=== PATIENT | male | born 1945 | race Caucasian/White ===

== ENCOUNTER 2020-08-21 11:11 | Emergency (ER) | payer MEDICARE ==
[~2020-08-21] VITALS: Ht 170.2 cm; Wt 75.8 kg
[2020-08-21] MEDS ORDERED: COZAAR 25 MG TA25 MG PO (11:20)
[2020-08-21] MEDS ORDERED: AMLODIPINE-OLM1 EAC3 PO (11:20)
[2020-08-21] MEDS ORDERED: LEVO-T25 MCG PO (11:20)
[2020-08-21] MEDS ORDERED: CHILDREN'S ASPI81 M1 PO (11:21)
[2020-08-21 13:01] LABS: ABSOLUTE BASOPHILS 0.1 thou/uL (0.0-0.2); ABSOLUTE EOSINOPHILS 0.1 thou/uL (0.0-0.7); ABSOLUTE LYMPHOCYTES 1.3 thou/uL (0.8-5.3); ABSOLUTE MONOCYTES 0.9 thou/uL (0.0-1.2); ABSOLUTE NEUTROPHILS 5.4 thou/uL (1.6-8.1); BASOPHILS 1.3 %; EOSINOPHILS 1.4 %; HEMATOCRIT 43.7 % (42.0-52.0); HEMOGLOBIN 14.7 gm/dL (14.0-18.0); LYMPHOCYTES 16.1 %; MCH 29.3 pg (26.0-34.0); MCHC 33.7 g/dL (28.0-37.0); MONOCYTES 11.3 %; MPV 8.7 fl. (7.2-11.1); NUCLEATED RBCS 0 /100WBC; PLATELET COUNT* 177 thou/uL (150-400); POLYS 69.9 %; RBC 5.02 mil/uL (4.50-6.00); RDW-CV 13.4 % (10.5-14.5); WBC 7.8 thou/uL (4.0-11.0)
[2020-08-21 13:15] LABS: APTT 21.7 Seconds (25.0-31.3)
[2020-08-21 13:31] LABS: CALCIUM 8.5 mg/dL (8.5-10.1); POTASSIUM 4.6 mmol/L (3.5-5.1)
[2020-08-21 13:37] LABS: ALBUMIN 3.4 g/dL (3.4-5.0); TOTAL BILIRUBIN 0.4 mg/dL (<0.1-1.0); TOTAL PROTEIN 6.8 g/dL (6.4-8.2)
[2020-08-21 13:55] VITALS: BP 115/58
== END 2020-08-21 13:58 | disposition short-term general hospital (02) ==
LOC: M.ERS 11:11
PROVIDERS: Emergency Medicine Emergency Medical Services
DX: S01.91XA Laceration without foreign body of unspecified part of head, initial encounter (principal); Z20.828 Contact with and (suspected) exposure to other viral communicable diseases; I10 Essential (primary) hypertension; E03.9 Hypothyroidism, unspecified; I48.91 Unspecified atrial fibrillation; Z79.899 Other long term (current) drug therapy; Z79.82 Long term (current) use of aspirin; W11.XXXA Fall on and from ladder, initial encounter; Y93.89 Activity, other specified; Y92.89 Other specified places as the place of occurrence of the external cause; Y99.8 Other external cause status